=== PATIENT | female | born 2000 | race Caucasian/White ===

== ENCOUNTER 2024-04-28 14:48 | Emergency (ER) | payer OTHER, SELFPAY ==
--- OUTSIDE RECORDS SUMMARY | 2024-04-28 14:53 | XMS REPORT | Continuity of Care Document ---
Author Name Unknown Address [address] [facility] [place] [address] [facility] thconnect Address [address] [facility] [place] [address] Care Team Providers Care Java Developer With Security Clearance Name Role Phone JULIANNA MOHAN Primary Care Physician Unav ailable Miryam Palomino CNM Attending Clinician [phone] MIRYAM PALOMINO Attending Clinician Unavaila ble Julianna Reno Attending Clinician + Thanh Celis Attending Clinician Unavailable L_Panfilo Attending Clinician Unavailable Yahaira Wang Attending Clinician [phone] YAHAIRA STILES Attending Clinician Unavailabl e Doctor Unassigned, [facility] Attending Clinician U navailable SMITHROROSHAN_Lowell Attending Clinician Unavailable Victoria Cooley Attending Clinician [phone] JULIANNA MOHAN Attending Clinician Unavail able PHU Attending Clinician Unavailable Sue Garland MA [facility] Admitting Clinician U navailliban KNOW, DOES_NOT Admitting Clinician Unavailable L_Pena Admitting Clinician Unavailable SCHAUBROECK_Lowell Admitting Clinician Unavailable PHU Admitting Clinician Unavailable Payers Payer Name Policy Type Policy Number Effective Date Expirati on Date Source [id number] 00:[facility]:00 Problems Condition Name Condition Details Condition Category Status Onset Date Resolution Date Last Treatment Date Treating Clinician Comments Source Vomiting Vomiting Problem Active 1-16 00:00: 00 [facility] Atypical squamous cells of undetermin ed significan ce (ASCUS) on Papanicola ou smear of cervix Atypical squamous cells of undetermin ed significan ce (ASCUS) on Papanicola ou smear of cervix Disease Active 5- 00:00: 00 Overview: Formattin g of this note might be different from the original. 4 ASCUS, repeat 1 year [facility] Engages in vaping Engages in vaping Disease Active 5-03 00:00: 00 [facility] Fracture of lumbar spine Fracture of Lumbar Spine Problem Active 1-21 00:00: 00 [facility] Mixed anxiety and depressive disorder Mixed Anxiety and Depressive Disorder Problem Active 09-10 00:00: 00 [facility] Acute pharyngiti s Acute Pharyngiti s Problem Active 6- 00:00: 00 [facility] Nausea Nausea Problem Active 09-10 00:00: 00 [facility] Nexplanon insertion Nexplanon insertion Disease Active -15 00:00: 00 [facility] Nexplanon in place Nexplanon in place Disease Active 15 00:00: 00 [facility] Leukocytos is Leukocytos is Problem Active 10-03 00:00: 00 [facility] Abdominal pain Abdominal Pain Problem Active 6 00:00: 00 [facility] Cyst of left ovary Cyst of Left Ovary Problem Active 10-03 00:00: 00 [facility] Seasonal allergy Seasonal Allergy Problem Active 3-17 00:00: 00 [facility] Pain pelvic Pain pelvic Disease Active 5 00:00: 00 [facility] Contracept gabino management Contracept gabino management Disease Active 06-23 00:00: 00 [facility] Nexplanon removal Nexplanon removal Disease Active 06-23 00:00: 00 Overview: Formattin g of this note might be different from the original. Inserted 06/2017 [facility] Allergies, Adverse Reactions, Alerts Allergy Name Allergy Type Status Severity Reaction(s) Onset Date Inactive Date Treating Clinician Comments Source No Known Allergie s DA Active U 9- 00:00: 00 [facility] No Known Allergie s DA Active U 07-09 00:00: 00 [facility] NO KNOWN ALLERGIE S Drug Class Active [facility] Social History Social Habit Start Date Stop Date Quantity Comments Source Sexual orientation U [facility] History of tobacco use Cigarette Smoker [facility] Exposure to SARS-CoV-2 (event) Not sure [facility] Alcoholic beverage intake 2023-08-24 00:00:00 2023-08-24 00:00:00 1.71 /d [facility] Alcohol intake 2023-08-12 00:00:00 2023-08-12 00:00:00 1.71 /d [facility] History of Social function 2023-08-11 00:00:00 2023-08-11 00:00:00 [facility] Tobacco use and exposure 2023-08-11 00:00:00 2023-08-11 00:00:00 User of smokeless tobacco [facility] Sex assigned at 2000 00:00:00 2000 00:00:00 [facility] Smoking Status Start Date Stop Date Source Smokes tobacco daily 2023-08-11 00:00:00 [facility] Never smoked tobacco [facility] Medications Ordered Medication Name Filled Medication Name Start Date Stop Date Current Medication? Ordering Clinician Indication Dosage Frequency Signature (SIG) Comments Components Source fluoxetine HCl (PROZAC ORAL) 9-21 13:39: 07 Yes Take by mouth. [facility] fluoxetine HCl (PROZAC ORAL) 4-06 13:58: 06 08-11 00:00 :00 No Take by mouth. [facility] dicloxacill in 500 mg capsule 06-26 00:00: 00 07-04 04:59 :00 No [id number] 500mg Take 1 capsule by mouth 4 (four) times daily for 7 days. [facility] etonogestre L (NEXPLANON) implant 68 mg 06-23 20:00: 00 06-23 18:53 :00 No [id number] 68mg [facility] No [facility] No known medications No Un benito [facility] No known medications No Un benito [facility] No known medications No Un benito [facility] No known medications No Un benito [facility] No known medications No Un beniot [facility] fluoxetine 20 mg capsule Take 1 capsule every day by oral route. fluoxetine 20 mg capsule Take 1 capsule every day by oral route. No 1capsul e(s) Q1D fluoxetine 20 mg capsule Take 1 capsule every day by oral route. [facility] ibuprofen 800 mg tablet TAKE 1 TABLET BY MOUTH THREE TIMES DAILY NEEDED FOR PAIN ibuprofen 800 mg tablet TAKE 1 TABLET BY MOUTH THREE TIMES DAILY NEEDED FOR PAIN No ibuprofen 800 mg tablet TAKE 1 TABLET BY MOUTH THREE TIMES DAILY NEEDED FOR PAIN [facility] ondansetron 4 mg disintegrat ing tablet MAY TAKE 1-2 TABLETS EVERY 12 HOURS NEEDED FOR NAUSEA/VOMI TING ondansetron 4 mg disintegrat ing tablet MAY TAKE 1-2 TABLETS EVERY 12 HOURS NEEDED FOR NAUSEA/VOMI TING No ondansetro n 4 mg disintegra ting tablet MAY TAKE 1-2 TABLETS EVERY 12 HOURS NEEDED FOR NAUSEA/VOM ITING [facility] Immunizations Ordered Immunization Name Filled Immunization Name Date Status Comments Source SARS-COV-2 COVID-19 PFIZER VACCINE 2020-11-24 00:00:00 Completed [facility] SARS-COV-2 COVID-19 PFIZER VACCINE 2020-11-03 00:00:00 Completed [facility] Influenza Virus Vaccine Quad .5 mL IM 6+ MO 2019-12-27 00:00:00 Completed [facility] Influenza Virus Vaccine Quad .5 mL IM 6+ MO 2019-12-27 00:00:00 Completed [facility] Influenza Virus Vaccine Quad .5 mL IM 6+ MO 2019-12-27 00:00:00 Completed [facility] Influenza Virus Vaccine Quad .5 mL IM 6+ MO 2019-12-27 00:00:00 Completed [facility] Influenza Virus Vaccine Quad .5 mL IM 6+ MO 2019-12-27 00:00:00 Completed [facility] Influenza Virus Vaccine Quad .5 mL IM 6+ MO 2019-12-27 00:00:00 Completed [facility] Influenza Virus Vaccine Quad .5 mL IM 6+ MO 2019-12-27 00:00:00 Completed [facility] Influenza Virus Vaccine Quad .5 mL IM 6+ MO 2019-12-27 00:00:00 Completed [facility] Influenza Virus Vaccine Quad .5 mL IM 6+ MO 2019-12-27 00:00:00 Completed [facility] meningococcal MCV4P meningococcal MCV4P 16:16:00 Completed [facility] HPV9 2017-12-29 00:00:00 Completed [facility] HPV9 2017-12-29 00:00:00 Completed [facility] HPV9 2017-12-29 00:00:00 Completed [facility] HPV9 2017-12-29 00:00:00 Completed [facility] HPV9 2017-12-29 00:00:00 Completed [facility] HPV9 2017-12-29 00:00:00 Completed [facility] HPV9 2017-12-29 00:00:00 Completed [facility] HPV9 2017-12-29 00:00:00 Completed [facility] HPV9 2017-12-29 00:00:00 Completed [facility] HPV9 2017-12-29 00:00:00 Completed [facility] HPV9 2017-08-26 00:00:00 Completed [facility] HPV9 2017-08-26 00:00:00 Completed [facility] HPV9 2017-08-26 00:00:00 Completed [facility] HPV9 2017-08-26 00:00:00 Completed [facility] HPV9 2017-08-26 00:00:[address] [facility] HPV9 2017-08-26 00:00:[address] [facility] HPV9 2017-08-26 00:00:00 Completed [facility] HPV9 2017-08-26 00:00:00 Completed [facility] HPV9 2017-08-26 00:00:00 Completed [facility] HPV9 2017-08-26 00:00:00 Completed [facility] HPV9 2017-06-23 00:00:00 Completed [facility] HPV9 2017-06-23 00:00:00 Completed [facility] HPV9 2017-06-23 00:00:00 Completed [facility] HPV9 2017-06-23 00:00:00 Completed [facility] HPV9 2017-06-23 00:00:00 Completed [facility] HPV9 2017-06-23 00:00:[address] [facility] HPV9 2017-06-23 00:00:00 Completed [facility] HPV9 2017-06-23 00:00:00 Completed [facility] HPV9 2017-06-23 00:00:00 Completed [facility] HPV9 2017-06-23 00:00:00 Completed [facility] TDAP 2013-04-11 00:00:00 Completed [facility] TDAP 2013-04-11 00:00:00 Completed [facility] TDAP 2013-04-11 00:00:00 Completed [facility] TDAP 2013-04-11 00:00:00 Completed [facility] TDAP 2013-04-11 00:00:00 Completed [facility] TDAP 2013-04-11 00:00:00 Completed [facility] TDAP 2013-04-11 00:00:00 Completed [facility] TDAP 2013-04-11 00:00:00 Completed [facility] TDAP 2013-04-11 00:00:00 Completed [facility] TDAP 2013-04-11 00:00:00 Completed [facility] TDAP Unknown Completed [facility] HPV9 Unknown Completed [facility] Influenza Virus Vaccine Quad .5 mL IM 6+ MO (FLUZONE/FLULAVAL/F LUARIX) Unknown Completed [facility] SARS-COV-2 COVID-19 PFIZER VACCINE Unknown Completed [facility] TDAP Unknown Completed [facility] HPV9 Unknown Completed [facility] Influenza Virus Vaccine Quad .5 mL IM 6+ MO (FLUZONE/FLULAVAL/F LUARIX) Unknown Completed [facility] SARS-COV-2 COVID-19 PFIZER VACCINE Unknown Completed [facility] TDAP Unknown Completed [facility] HPV9 Unknown Completed [facility] Influenza Virus Vaccine Quad .5 mL IM 6+ MO (FLUZONE/FLULAVAL/F LUARIX) Unknown Completed [facility] SARS-COV-2 COVID-19 PFIZER VACCINE Unknown Completed [facility] Vital Signs Vital Name Observation Time Observation Value Comments S ource BP Systolic 2024-04-26 00:00:00 115 mm[Hg] [facility] BP Diastolic 2024-04-26 00:00:00 65 mm[Hg] [facility] Body Weight 2024-04-26 00:00:00 2048 [oz_av] [facility] Systolic blood pressure 2023-08-11 17:59:00 96 mm[Hg] [facility] Diastolic blood pressure 2023-08-11 17:59:00 65 mm[Hg] [facility] Heart rate 2023-08-11 17:59:00 78 /min [facility] Body temperature 2023-08-11 17:59:00 36.39 Gail [facility] Respiratory rate 2023-08-11 17:59:00 16 /min [facility] Body height 2023-08-11 17:59:[address] [facility] Body weight 2023-08-11 17:59:[address] [facility] BMI 2023-08-11 17:59:00 24.19 kg/m2 [facility] BP Diastolic 2022-06-02 00:00:00 75 mm[Hg] [facility] Height 2022-06-02 00:00:00 61 [in_i] [facility] BMI (Body Mass Index) 2022-06-02 00:00:00 26.3 kg/m2 [facility] BP Systolic 2022-06-02 00:00:00 117 mm[Hg] [facility] Body Weight 2022-06-02 00:00:00 2227.2 [oz_av] [facility] Height 2022-02-23 00:00:00 61 [in_i] [facility] BP Systolic 2022-02-23 00:00:00 121 mm[Hg] [facility] Body Weight 2022-02-23 00:00:00 2214.4 [oz_av] [facility] BP Diastolic 2022-02-23 00:00:00 76 mm[Hg] [facility] Systolic blood pressure 2020-12-30 18:37:00 97 mm[Hg] [facility] Diastolic blood pressure 2020-12-30 18:37:00 64 mm[Hg] [facility] Heart rate 2020-12-30 18:37:00 68 /min [facility] Body temperature 2020-12-30 18:37:00 36.94 Gail [facility] Respiratory rate 2020-12-30 18:37:00 18 /min [facility] Body height 2020-12-30 18:37:[address] [facility] Body weight 2020-12-30 18:37:[address] [facility] BMI 2020-12-30 18:37:00 22.07 kg/m2 [facility] Body mass index (BMI) [Percentile] Per age and sex 2020-12-30 18:37:00 56.22 % [facility] BP Diastolic 2020-10-07 00:00:00 60 mm[Hg] [facility] Height 2020-10-07 00:00:00 61 [in_i] [facility] BP Systolic 2020-10-07 00:00:00 100 mm[Hg] [facility] BP Diastolic 2020-09-10 00:00:00 58 mm[Hg] [facility] Height 2020-09-10 00:00:00 61 [in_i] [facility] BMI (Body Mass Index) 2020-09-10 00:00:00 21.5 kg/m2 [facility] BP Systolic 2020-09-10 00:00:00 108 mm[Hg] [facility] Body Weight 2020-09-10 00:00:00 1817.6 [oz_av] [facility] Systolic blood pressure 2020-07-15 18:06:00 94 mm[Hg] [facility] Diastolic blood pressure 2020-07-15 18:06:00 62 mm[Hg] [facility] Heart rate 2020-07-15 18:06:00 62 /min [facility] Body temperature 2020-07-15 18:06:00 37.06 Gail [facility] Respiratory rate 2020-07-15 18:06:00 16 /min [facility] Body height 2020-07-15 18:06:[address] [facility] Body weight 2020-07-15 18:06:[address] [facility] BMI 2020-07-15 18:06:00 20.05 kg/m2 [facility] Systolic blood pressure 2020-06-30 20:03:00 112 mm[Hg] [facility] Diastolic blood pressure 2020-06-30 20:03:00 69 mm[Hg] [facility] Heart rate 2020-06-30 20:03:00 90 /min [facility] Body temperature 2020-06-30 20:03:00 36.83 Gail [facility] Respiratory rate 2020-06-30 20:03:00 16 /min [facility] Body height 2020-06-30 20:03:00 154.9 cm [facility] Body weight 2020-06-30 20:03:00 47.809 kg [facility] BMI 2020-06-30 20:03:00 19.92 kg/m2 [facility] Systolic blood pressure 2020-06-26 21:14:00 106 mm[Hg] [facility] Diastolic blood pressure 2020-06-26 21:14:00 71 mm[Hg] [facility] Heart rate 2020-06-26 21:14:00 64 /min [facility] Body temperature 2020-06-26 21:14:00 36.89 Gail [facility] Respiratory rate 2020-06-26 21:14:00 16 /min [facility] Body height 2020-06-26 21:14:00 154.9 cm [facility] Body weight 2020-06-26 21:14:[address] [facility] BMI 2020-06-26 21:14:00 19.38 kg/m2 [facility] Systolic blood pressure 2020-06-23 18:16:00 113 mm[Hg] [facility] Diastolic blood pressure 2020-06-23 18:16:00 71 mm[Hg] [facility] Heart rate 2020-06-23 18:16:00 74 /min [facility] Body temperature 2020-06-23 18:16:00 36.89 Gail [facility] Respiratory rate 2020-06-23 18:16:00 16 /min [facility] Body height 2020-06-23 18:16:00 154.9 cm [facility] Body weight 2020-06-23 18:16:[address] [facility] BMI 2020-06-23 18:16:00 19.32 kg/m2 [facility] Height 2020-05-05 00:00:00 61 [in_i] [facility] BMI (Body Mass Index) 2020-05-05 00:00:00 19.7 kg/m2 [facility] BP Systolic 2020-05-05 00:00:00 105 mm[Hg] [facility] Body Weight 2020-05-05 00:00:00 1664 [oz_av] [facility] BP Diastolic 2020-05-05 00:00:00 67 mm[Hg] [facility] Systolic blood pressure 2019-12-27 18:21:00 117 mm[Hg] [facility] Diastolic blood pressure 2019-12-27 18:21:00 75 mm[Hg] [place] [facility] Heart rate 2019-12-27 18:21:00 92 /min [facility] Body temperature 2019-12-27 18:21:00 36.89 Gail [facility] Respiratory rate 2019-12-27 18:21:00 16 /min [facility] Body height 2019-12-27 18:21:[address] [facility] Body weight 2019-12-27 18:21:[address] [facility] BMI 2019-12-27 18:21:00 20.24 kg/m2 [facility] Procedures Procedure Date / Time Performed Performing Clinician Source POCT TEST 2023-08-11 19:36:00 Marylou Palomino [facility] PAP SMEAR-LIQUID BASED-CP 2023-08-11 19:35:00 Miryam Palomino [facility] CBC WITH DIFF 2023-08-11 18:50:00 Miryam Palomino [facility] HIV 1/2 AG-AB WITH REFLEX 2023-08-11 18:50:00 Miryam Palomino [facility] ASSIGNMENT OF BENEFITS 2020-12-30 18:19:07 Docto r Unassigned, [place] [facility] XR, chest, 2 view 2020-10-07 00:00:00 [facility] POCT TEST 2020-06-23 18:19:00 Edgar Mohan [facility] DISCLOSURE AND CONSENT, MEDICAL AND SURGICAL PROCEDURES 2020-06-23 05:01:00 Doctor Unassigned, [place] [facility] FLU VACC ([id number]), 6+ MONTHS, IM, QUAD 2019-12-27 18:29:17 Yahaira Stiles [facility] ASSIGNMENT OF BENEFITS 2019-12-27 17:57:44 Docto r Unassigned, [place] [facility] Debridement 2004-04-11 00:00:00 [facility] Encounters Start Date/Time End Date/Time Encounter Type Admission Type Attending Clinicians Care Facility Care Department Encounter ID Source 2024-04-26 00:00:00 2024-04-26 00:00:00 Nannette Whittaker APRN, MSN, [facility]-: [address], [address], [place] [address] , Ph. [facility] [id number] 116 [facility] 2023-08-24 00:00:00 2023-08-24 12:52:39 Telephone Miryam Palomino [facility] .[id number] [facility] 2023-08-17 08:30:00 2023-08-17 08:30:00 Outpatient MIRYAM [facility] [id number] [facility] 2023-08-11 12:30:00 2023-08-11 13:54:09 Outpatient MIRYAM LOPEZ [facility] [id number] [facility] 2023-08-11 12:30:00 2023-08-11 13:54:09 Office Visit Miryam Palomino [facility] LOG [facility] ..840.114 [id number] [facility] 2023-07-29 09:00:00 2023-07-29 09:00:00 Outpatient MIRYAM LOPEZ [facility] [id number] [facility] 2023-07-29 09:00:00 2023-07-29 09:00:00 Outpatient MIRYAM LOPEZ [facility] [id number] [facility] 2023-06-30 00:00:00 2023-06-30 00:00:00 Telephone Julianna Mohan [facility] [id number] [facility] 2022-12-28 06:04:00 2022-12-28 06:04:00 Outpatient Thanh Joe HCANW DAYS [id number] 76 [facility] are [facility] 2022-07-13 05:03:00 2022-07-13 05:03:00 Outpatient Thanh JoeNW DAYS [id number] 12 [facility] are [facility] 2022-06-02 00:00:00 2022-06-02 00:00:00 Outpatient L_Pena [facility] 2022-06-02 00:00:00 2022-06-02 00:00:00 Elsa Palacios APRN-PERFORMANCE TEST ARCHITECT-B C: [address] [place] [address], [address] [address] , Ph. [facility] [id number] [facility] 2022-02-23 00:00:00 2022-02-23 00:00:00 Outpatient L_Pena [facility] 2022-02-23 00:00:00 2022-02-23 00:00:00 Nannette Whittaker APRN, MSN, PERFORMANCE TEST ARCHITECT-BC: [address] [place] [address], [address] [address] , Ph. [facility] [id number] [facility] 2020-12-30 13:22:44 2020-12-30 13:59:34 Office Visit Yahaira Stiles [facility] LOG [facility] 1..840.114 [id number] [facility] 2020-12-30 13:15:00 2020-12-30 13:15:00 Outpatient YAHAIRA [facility] [id number] [facility] 2020-12-30 00:00:00 2020-12-30 00:00:00 Orders Only Doctor Unassigned, [place] [facility] 1..840.114 [id number] [facility] 2020-12-30 00:00:00 2020-12-30 00:00:00 Orders Only Doctor Unassigned, [place] [facility] 1..840.114 [id number] [facility] 2020-11-10 02:06:00 2020-11-10 02:06:00 Outpatient SMITHROROSHAN _L [facility] [id number] [facility] 2020-10-07 11:07:00 2020-10-07 11:07:00 Outpatient SMITHROROSHAN _L [facility] [id number] [facility] 2020-10-07 00:00:00 2020-10-07 00:00:00 Outpatient Victoria Cooley [facility] [id number] 2020-10-07 00:00:00 2020-10-07 00:00:00 EMILIANO Brice-C: [address] [place] [address], [address], [place] [address] , Ph. [facility] [id number] [facility] [facility] 2020-[facility]-10 02:50:00 2020-09-10 02:50:00 Outpatient [place]K _L [facility] [id number] [facility] 2020-09-10 00:00:00 2020-09-10 00:00:00 Outpatient Victoria Cooley [facility] [id number] 2020-09-10 00:00:00 2020-09-10 00:00:00 Victoria parker, [facility]-: [address] [place] [address], [address] [place] [id number] , Ph. [facility] - [facility] [id number] [facility] 2020-08-05 10:42:00 2020-08-05 10:42:00 Outpatient [place] _L [facility] [id number] [facility] 2020-07-15 12:57:43 2020-07-15 13:27:48 Office Visit Julianna Mohan [facility] 1.2.840.114 350.1.13.10 4.2.7.2.686 [id number] 107 [id number] [facility] 2020-07-15 12:45:00 2020-07-15 12:45:00 Outpatient R JULIANNA MOHAN [facility] [id number] [facility] 2020-07-07 10:00:00 2020-07-07 10:00:00 Outpatient R JULIANNA MOHAN [facility] [id number] [facility] 2020-06-30 14:56:57 2020-06-30 15:11:57 Office Visit Julianna Mohan [facility] LOG [facility] 840.114 350.1.13.10 4.2.7.2.686 [id number] [facility] 2020-06-30 14:45:00 2020-06-30 14:45:00 Outpatient R JULIANNA MOHAN [facility] [id number] [facility] 2020-06-26 16:06:23 2020-06-26 16:28:07 Office Visit Julianna Mohan [facility] 1.0.114 350.1.13.10 4.2.7.2.686 [id number] [facility] 2020-06-26 16:00:00 2020-06-26 16:00:00 Outpatient R JULIANNA MOHAN [facility] [id number] [facility] 2020-06-26 00:00:00 2020-06-26 00:00:00 Telephone Julianna Mohan [facility] 1..114 350.1.13.10 4.2.7.2.686 [id number] [facility] 2020-06-23 12:57:04 2020-06-23 14:04:04 Office Visit AmbrocioelzaJulianna amaya [facility] LOG [facility] 1.840.114 350.1.13.10 4.2.7.2.686 [id number] [facility] 2020-06-23 13:00:00 2020-06-23 13:00:00 Outpatient R JULIANNA MOHAN [facility] [id number] [facility] 2020-06-23 00:00:00 2020-06-23 00:00:00 Orders Only Doctor Unassigned, [place] [facility] 1.0.114 350.1.13.10 4.2.7.2.686 [id number] [facility] 2020-05-06 09:37:00 2020-05-06 09:37:00 Outpatient TURNER_FA [facility] 2020-05-05 05:54:00 2020-05-05 05:54:00 Outpatient TURNER_FA [facility] 125 [facility] 2020-05-05 00:00:00 2020-05-05 00:00:00 Outpatient Victoria Cooley Marie [facility] [id number] 2020-05-05 00:00:00 2020-05-05 00:00:00 Victoria parker, [facility]-: [address] [place] [address], [address], [place] [address] , Ph. [facility] [id number] [facility] 2019-12-27 13:05:25 2019-12-27 13:34:28 Office Visit Yahaira Stiles [facility] LOG [facility] 1..840.114 350.1.13.10 4.2.7.2.686 [id number] [facility] 2019-12-27 12:45:00 2019-12-27 12:45:00 Outpatient R YAHAIRA STILES [facility] [id number] [facility] 2019-12-27 00:00:00 2019-12-27 00:00:00 Orders Only Doctor Unassigned, [place] [facility] 1..840.114 350.1.13.10 4.2.7.2.686 [id number] [facility] Results Test Description Test Time Test Comments Results Result Co mments Source [facility] WITH [id number] 10:28:48* Test Item Value Reference Range Interpretation Comme nts HIV Semi-quantitative (test code = 30732-2) 0.08 Negative JT (test code = JT) Non-reactive for HIV-1 antigen and HIV-1/HIV-2 antibodies. ?No laboratory evidence of HIV infection. ?Repeat in 2-4 weeks if acute HIV infection is suspected. [facility] 1/2 AG-AB WITH [id number] 10:28:48* Test Item Value Reference Range Interpretation Comme nts HIV Semi-quantitative (test code = 48990-9) 0.08 Negative JT (test code = JT) Non-reactive for HIV-1 antigen and HIV-1/HIV-2 antibodies. ?No laboratory evidence of HIV infection. ?Repeat in 2-4 weeks if acute HIV infection is suspected. [facility] 1/2 AG-AB WITH [id number] 10:28:48* Test Item Value Reference Range Interpretation Comme [facility] HIV Semi-quantitative (test code = 82639-3) 0.08 Negative JT (test code = JT) Non-reactive for HIV-1 antigen and HIV-1/HIV-2 antibodies. ?No laboratory evidence of HIV infection. ?Repeat in 2-4 weeks if acute HIV infection is suspected. [facility] WITH [id number] 04:38:58* Test Item Value Reference Range Interpretation Comme [facility] WBC (test code = 6690-2) 7.88 4.30-11.10 RBC (test code = 789-8) 4.99 3.93-5.25 HGB (test code = 718-7) 15.8 g/dL 11.6-15.0 H HCT (test code = 4544-3) 48.7 % 35.7-45.2 H MCV (test code = 787-2) 97.6 fL 80.6-95.5 H MCH (test code = 785-6) 31.7 pg 25.9-32.8 MCHC (test code = 786-4) 32.4 g/dL 31.6-35.1 RDW-SD (test code = 50261-0) 45.6 fL 39.0-49.9 RDW-CV (test code = 788-0) 12.9 % 12.0-15.5 PLT (test code = 777-3) 249 166-358 MPV (test code = 48972-7) 10.4 fL 9.5-12.9 NRBC/100 WBC (test code = 1312330989) 0.0 0.0-10.0 NRBC x10^3 (test code = 8775690698) See_Comment [Automated messa ge] The system which generated this result transmitted reference range: 10*3/?L. The reference range was not used to interpret this result as normal/abnormal. GRAN MAT (NEUT) % (test code = 770-8) 58.7 % IMM GRAN % (test code = 6027106092) 1.90 % LYMPH % (test code = 736-9) 27.5 % MONO % (test code = 5905-5) 9.9 % EOS % (test code = 713-8) 1.1 % BASO % (test code = 706-2) 0.9 % GRAN MAT x10^3(ANC) (test code = 7494028785) 4.62 10*3/uL 1.88-7.09 IMM GRAN x10^3 (test code = 9688214725) 0.15 10*3/uL 0.00-0.06 H LYMPH x10^3 (test code = 731-0) 2.17 10*3/uL 1.32-3.29 MONO x10^3 (test code = 742-7) 0.78 10*3/uL 0.33-0.92 EOS x10^3 (test code = 711-2) 0.09 10*3/uL 0.03-0.39 BASO x10^3 (test code = 704-7) 0.07 10*3/uL 0.01-0.07 Lab Interpretation (test code = 33583-7) Abnormal [facility] WITH [id number] 04:38:58* Test Item Value Reference Range Interpretation Comme nts WBC (test code = 6690-2) 7.88 4.30-11.10 RBC (test code = 789-8) 4.99 3.93-5.25 HGB (test code = 718-7) 15.8 g/dL 11.6-15.0 H HCT (test code = 4544-3) 48.7 % 35.7-45.2 H MCV (test code = 787-2) 97.6 fL 80.6-95.5 H MCH (test code = 785-6) 31.7 pg 25.9-32.8 MCHC (test code = 786-4) 32.4 g/dL 31.6-35.1 RDW-SD (test code = 86232-2) 45.6 fL 39.0-49.9 RDW-CV (test code = 788-0) 12.9 % 12.0-15.5 PLT (test code = 777-3) 249 166-358 MPV (test code = 49141-9) 10.4 fL 9.5-12.9 NRBC/100 WBC (test code = 8898781972) 0.0 0.0-10.0 NRBC x10^3 (test code = 5996509278) See_Comment [Automated messa ge] The system which generated this result transmitted reference range: 10*3/?L. The reference range was not used to interpret this result as normal/abnormal. GRAN MAT (NEUT) % (test code = 770-8) 58.7 % IMM GRAN % (test code = 1796995855) 1.90 % LYMPH % (test code = 736-9) 27.5 % MONO % (test code = 5905-5) 9.9 % EOS % (test code = 713-8) 1.1 % BASO % (test code = 706-2) 0.9 % GRAN MAT x10^3(ANC) (test code = 2967038349) 4.62 10*3/uL 1.88-7.09 IMM GRAN x10^3 (test code = 9112544859) 0.15 10*3/uL 0.00-0.06 H LYMPH x10^3 (test code = 731-0) 2.17 10*3/uL 1.32-3.29 MONO x10^3 (test code = 742-7) 0.78 10*3/uL 0.33-0.92 EOS x10^3 (test code = 711-2) 0.09 10*3/uL 0.03-0.39 BASO x10^3 (test code = 704-7) 0.07 10*3/uL 0.01-0.07 Lab Interpretation (test code = 49068-5) Abnormal [facility] WITH [id number] 04:38:58* Test Item Value Reference Range Interpretation Comme nts WBC (test code = 6690-2) 7.88 4.30-11.10 RBC (test code = 789-8) 4.99 3.93-5.25 HGB (test code = 718-7) 15.8 g/dL 11.6-15.0 H HCT (test code = 4544-3) 48.7 % 35.7-45.2 H MCV (test code = 787-2) 97.6 fL 80.6-95.5 H MCH (test code = 785-6) 31.7 pg 25.9-32.8 MCHC (test code = 786-4) 32.4 g/dL 31.6-35.1 RDW-SD (test code = 96144-3) 45.6 fL 39.0-49.9 RDW-CV (test code = 788-0) 12.9 % 12.0-15.5 PLT (test code = 777-3) 249 166-358 MPV (test code = 83423-9) 10.4 fL 9.5-12.9 NRBC/100 WBC (test code = 1910038733) 0.0 0.0-10.0 NRBC x10^3 (test code = 9709397072) See_Comment [Automated messa ge] The system which generated this result transmitted reference range: 10*3/?L. The reference range was not used to interpret this result as normal/abnormal. GRAN MAT (NEUT) % (test code = 770-8) 58.7 % IMM GRAN % (test code = 0840520909) 1.90 % LYMPH % (test code = 736-9) 27.5 % MONO % (test code = 5905-5) 9.9 % EOS % (test code = 713-8) 1.1 % BASO % (test code = 706-2) 0.9 % GRAN MAT x10^3(ANC) (test code = 9693299467) 4.62 10*3/uL 1.88-7.09 IMM GRAN x10^3 (test code = 3947648808) 0.15 10*3/uL 0.00-0.06 H LYMPH x10^3 (test code = 731-0) 2.17 10*3/uL 1.32-3.29 MONO x10^3 (test code = 742-7) 0.78 10*3/uL 0.33-0.92 EOS x10^3 (test code = 711-2) 0.09 10*3/uL 0.03-0.39 BASO x10^3 (test code = 704-7) 0.07 10*3/uL 0.01-0.07 Lab Interpretation (test code = 09180-7) Abnormal [facility] [id number] 19:36:00* Test Item Value Reference Range Interpretation Comme nts POCT PREG (test code = 1605) Negative On board controls acceptable with C Line (test code = 3574) Yes POCT PREG LOT # (test code = 3575) POCT PREG TEST DATE ( test code = 3576) [facility] [id number] 19:36:00* Test Item Value Reference Range Interpretation Comme nts POCT PREG (test code = 1605) Negative On board controls acceptable with C Line (test code = 3574) Yes POCT PREG LOT # (test code = 3575) POCT PREG TEST DATE ( test code = 3576) [facility] [id number] 19:36:00* Test Item Value Reference Range Interpretation Comme nts POCT PREG (test code = 1605) Negative On board controls acceptable with C Line (test code = 3574) Yes POCT PREG LOT # (test code = 3575) POCT PREG TEST DATE ( test code = 3576) [facility] [id number] 07:47:00* Test Item Value Reference Range Interpretation Comme [facility] SURGICAL SPECIMENS (test code = SURG) RUN DATE: 12/29/22 [facility] - LAB PAGE 1 RUN TIME: 746 Specimen Inquiry RUN USER: INTERFACE PATIENT: MELISSA CHAVIRA LOC: [facility] U #: [id number] AGE/SX: 22/F ROOM: [facility]12[facility]28[facility]: Thanh Celis DPM : 01 BED: DIS: STATUS: [facility] TLOC: SPEC #: [id number] RECD: 12/28/229 STATUS: ALEX ESPINOZA #: [id number] HERRERA: 12/28/22-[address]: Thanh Celis DPM ENTERED: 12/28/22-1113 SP TYPE: SURG OTHR DR: DOES_NOT KNOW Sue Garland MA [facility] SLPORDERED: GROSS, PATH SPEC TISSUES: A. PRESSER FIRST - Left food hardware CLINICAL HISTORY Diagnosis/Clinical Data: Left foot hardware removal Operative Procedure: Left foot hardware removal FINAL DIAGNOSIS Left foot hardware, removal: Identified Electronically signed by: Ez Meadows MD GROSS DESCRIPTION Received fresh labeled "left foot hardware" are multiple screws ranging from 1.0 cm in length to 1.5 cm in length by 0.2 cm in diameter. There is a silver metallic plate measuring 3.3 x 0.5 x 0.2 cm. There is a serial number on one of the screws: [id number] 2.5. No tissue is submitted with this gross specimen. JAVIER 12/28/2022 05:30 PM Signed SIGNATURE ON FILE Ez Meadows Vinh 12/29/22 0747 END OF REPORT HCG SERUM [id number] 10:01:00* Test Item Value Reference Range Interpretation Comme nts HCG SERUM QUAL (test code = HCGQL) NEGATIVE NEGATIVE This is a qu alitative screening test.The quantitative Bhcg may be helpful.Weakly positive results should be repeated in 48 hours. COMPREHENSIVE METABOLIC [id number] 10:01:00* Test Item Value Reference Range Interpretation Comme nts SODIUM (test code = NA) 136 mmol/L 135-145 N POTASSIUM (test code = K) 4.0 mmol/L 3.6-5.0 N CHLORIDE (test code = CL) 103 mmol/L 101-111 N CARBON DIOXIDE (test code = CO2) 23 mmol/L 21-31 N GLUCOSE (test code = GLU) 91 mg/dl 70-100 N BLOOD UREA NITROGEN (test code = BUN) 8 mg/dl 6-20 N GLOMERULAR FILTRATION RATE (test code = GFR) >=60 max estimate >60 The Glomerular Filtration Rate is a calculated parameterbased on serum Creatinine, patient age and sex. GFR valuesless than 60 mL/min/1.73 square meters are indicative ofChronic Kidney Disease. Values less than 15 mL/min/1.73square meters indicate Kidney failure. The calculation forGFR is based on the CKD-EPI (202) calculation. This formulais race indifferent and is the recommended formula for GFRby the National Kidney Foundation for Adults.The GFR will not calculate if the sex is unknown or if thepatient's age is <18 years. CREATININE (test code = CREAT) 0.71 mg/dL 0.44-1.03 N TOTAL PROTEIN (test code = PROT) 7.0 g/dL 6.7-8.2 N ALBUMIN (test code = ALB) 4.6 g/dL 3.2-5.5 N CALCIUM (test code = CA) 9.4 mg/dL 8.5-10.5 N BILIRUBIN TOTAL (test code = BILT) 1.30 mg/dL 0.2-1.3 N SGOT/AST (test code = AST) 23 U/L 10-42 N SGPT/ALT (test code = ALT) 27 U/L 10-60 N ALKALINE PHOSPHATASE (test code = ALKP) 71 U/L 42-121 N INDEX HEMOLYSIS (test code = HEMINDEX) 0 Index/DL See_Comment [Automated messa ge] The system which generated this result transmitted reference range: 1 NORMAL. The reference range was not used to interpret this result as normal/abnormal. INDEX ICTERIC (test code = ICTINDEX) 2 Index/DL See_Comment [Automated messa ge] The system which generated this result transmitted reference range: 1 NORMAL. The reference range was not used to interpret this result as normal/abnormal. INDEX LIPEMIA (test code = LIPINDEX) 0 Index/DL See_Comment [Automated messa ge] The system which generated this result transmitted reference range: 1 NORMAL. The reference range was not used to interpret this result as normal/abnormal. CBC W/AUTO [id number] 09:46:00* Test Item Value Reference Range Interpretation Comme nts WHITE BLOOD CELL (test code = WBC) 9.8 x10 3/uL 3.2-11.5 N RED BLOOD CELL (test code = RBC) 5.58 x10(6)/m 3.70-5.10 H HEMOGLOBIN (test code = HGB) 16.7 g/dL 12.0-15.0 H HEMATOCRIT (test code = HCT) 50.3 % 35.7-44.8 H MEAN CELL VOLUME (test code = MCV) 90 fL 80-100 N MEAN CELL HGB (test code = MCH) 29.9 pg 26.2-33.8 N MEAN CELL HGB CONCENTRATION (test code = MCHC) 33.2 g/dL 30.0-34.0 N RED CELL DISTRIBUTION WIDTH (test code = RDW) 15.1 % 11.3-14.5 H PLATELET COUNT (test code = PLT) 214 x10 3/uL 130-408 N MEAN PLATELET VOLUME (test c ode = MPV) 9.8 fL 8.6-12.6 N NEUTROPHIL % (test code = NT%) 64.7 % 40.0-70.0 N LYMPHOCYTE % (test code = LY%) 23.1 % 20-40 N MONOCYTE % (test code = MO%) 10.1 % 1-10 H EOSINOPHIL % (test code = EO%) 0.7 % 0.0-5.0 N BASOPHIL % (test code = BA%) 0.5 % 0.0-1.0 N NUCLEATED RBC % (test code = NRBC%) 0.0 % 0.0-0.9 N NEUTROPHIL # (test code = NT#) 6.4 x10 3/uL 1.6-7.2 N LYMPHOCYTE # (test code = LY#) 2.27 x10 3/uL 1.1-2.7 N MONOCYTE # (test code = MO#) 1.0 x10 3/uL 0.3-0.8 H EOSINOPHIL # (test code = EO#) 0.1 x10 3/uL 0.0-0.5 N IMMATURE GRANULOCYTE % (test code = IG%) 0.9 % 0.0-2.0 N BASOPHIL # (test code = BA#) 0.1 x10 3/uL 0.0-0.1 N UR HCG [id number] 10:03:00* Test Item Value Reference Range Interpretation Comme nts UR HCG QUAL (test code = HCGQLU) NEGATIVE NEGATIVE rapid flu (A+B)2020-09-10 13:22:00* Test Item Value Reference Range Interpretation Comme nts FLU A (test code = FLU A) negative FLU B (test code = FLU B) negative [facility], [id number] 13:22:00 * Test Item Value Reference Range Interpretation Comme nts Strep (test code = Strep) negative [facility] [id number] 18:19:00* Test Item Value Reference Range Interpretation Comme nts POCT PREG (test code = 1605) Negative On board controls acceptable with C Line (test code = 3574) Yes POCT PREG LOT # (test code = 3575) POCT PREG TEST DATE ( test code = 3576) [facility] [id number] 18:19:00* Test Item Value Reference Range Interpretation Comme nts POCT PREG (test code = 1605) Negative On board controls acceptable with C Line (test code = 3574) Yes POCT PREG LOT # (test code = 3575) POCT PREG TEST DATE ( test code = 3576) [facility]
--- NOTE | 2024-04-28 16:50 | ER ---
Nurse's Notes [facility] Name: Fiona Sultana Age: 23 yrs Sex: Female : 2000 Arrival Date: 04/28/2024 Time: 14:48 Bed IW1 Private MD: Diagnosis: Presentation: 04/28 15:01 Chief complaint: Patient states: N/V x4 DAYS, PREVIOUSLY SEEN AT [place] AND WITH bp "KIDNEY INFECTION", NO IMPROVEMENT WITH PRESCRIBED ABX. Coronavirus screen: At this time, the client does not indicate any symptoms associated with coronavirus-19. Ebola Screen: No symptoms or risks identified at this time. Initial Sepsis Screen: Does the patient meet any 2 criteria? HR > 90 bpm. No. Patient's initial sepsis screen is negative. Does the patient have a suspected source of infection? No. Patient's initial sepsis screen is negative. Risk Assessment: Do you want to hurt yourself or someone else? Patient reports no desire to harm self or others. Onset of symptoms is unknown. 15:01 Method Of Arrival: Wheelchair bp 15:01 Acuity: [place] 3 bp Triage Assessment: 15:02 General: Appears in no apparent distress. uncomfortable, ill, Behavior is cooperative, bp appropriate for age, anxious. Pain: Complains of pain in back. EENT: No deficits noted. Neuro: No deficits noted. Cardiovascular: Rhythm is sinus tachycardia. Respiratory: No deficits noted. GI: Reports nausea, vomiting. : Reports pain in lower back. Derm: No deficits noted. Musculoskeletal: No deficits noted. Historical: - Allergies: 15:02 No Known Allergies; bp - Home Meds: 15:02 None [Active]; bp - PMHx: 15:02 None; bp - Immunization history:: Adult Immunizations up to date. - Infectious Disease History:: Denies. - Social history:: Smoking status: Patient denies any tobacco usage or history of. Assessment: 16:48 Reassessment: PT ELOPED FROM TRIAGE, INFORMED REGISTRATION. bp Vital Signs: 15:01 BP 109 / 88; Pulse 116; Resp 18; Temp 99.5; Pulse Ox 100% ; bp ED Course: 14:53 Patient arrived in ED. sj2 14:57 Josesito Alcantar PA is PHCP. cp 14:57 Josesito Hull MD is Attending Physician. cp 15:02 Triage completed. bp 15:02 Arm band placed on. bp 16:01 Radiology exam delayed due to test not completed at this time. sm9 16:42 Josesito Hull MD is Attending Physician. gali Administered Medications: No medications were administered Outcome: 16:48 Eloped from waiting room, after seeing physician Time discovered patient gone: April bp 2024 at 16:15 16:48 Condition: stable 16:50 Patient left the ED. bp Signatures: Josesito Hull MD MD cha Page, Corey, PA PA Thanh Tripathi, RN RN bp Maddie Rodríguez sm9 Katelynn Wiseman 2
[2024-04-28 17:22] VITALS: BP 109/88; TEMP 99.5; O2SAT 100
== END 2024-04-28 16:50 | disposition left against medical advice (07) ==
LOC: ER 14:48
DX: R11.2 Nausea with vomiting, unspecified (principal); Z53.21 Procedure and treatment not carried out due to patient leaving prior to being seen by health care provider
CPT/HCPCS: 99281

== ENCOUNTER 2024-12-29 04:06 | Emergency (ER) | payer SELFPAY ==
--- OUTSIDE RECORDS SUMMARY | 2024-12-29 04:11 | XMS REPORT | Continuity of Care Document ---
Author Name Unknown Address [address] [facility] [place] [address] [facility] Address [address] [facility] [facility] [place] [address] Care Team Providers Care Vegetable Grader Name Role Phone JULIANNA MOHAN Primary Care Physician Unav ailable Miryam Palomino CNM Attending Clinician [phone] MIRYAM PALOMINO Attending Clinician Unavaila ble Julianna Reno Attending Clinician + Thanh Celis Attending Clinician Unavailable Lowell_Panfilo Attending Clinician Unavailable Yahaira Wang Attending Clinician [phone] YAHAIRA STILES Attending Clinician Unavailabl e Doctor Unassigned, [place] Attending Clinician U laura HERNANDEZ Attending Clinician Unavailable Victoria Cooley Attending Clinician [phone] JULIANNA MOHAN Attending Clinician Unavail able PHU Attending Clinician Unavailable Sue Garland MA [facility] STAFF OCCUPATIONAL THERAPIST Admitting Clinician U laura KNOW, DOES_NOT Admitting Clinician Unavailable L_Penken Admitting Clinician Unavailable MARY Admitting Clinician Unavailable PHU Admitting Clinician Unavailable Payers Payer Name Policy Type Policy Number Effective Date Expirati on Date Source [id number] 00:[facility]00 Problems Condition Name Condition Details Condition Category Status Onset Date Resolution Date Last Treatment Date Treating Clinician Comments Source Gastroesop hageal reflux disease Gastroesop hageal Reflux Disease Problem Active 7[facility]10 [facility]:00: [facility] Vomiting Vomiting Problem Active 1-16 00:00: 00 [facility] Atypical squamous cells of undetermin ed significan ce (ASCUS) on Papanicola ou smear of cervix Atypical squamous cells of undetermin ed significan ce (ASCUS) on Papanicola ou smear of cervix Disease Active 5-15 00:00: 00 Overview: Formattin g of this note might be different from the original. 4 ASCUS, repeat 1 year [facility] Engages in vaping Engages in vaping Disease Active 5-03 00:00: 00 [facility] Fracture of lumbar spine Fracture of Lumbar Spine Problem Active 1-21 00:00: 00 [facility] Mixed anxiety and depressive disorder Mixed Anxiety and Depressive Disorder Problem Active 6-02 00:00: 00 [facility] Acute pharyngiti s Acute Pharyngiti s Problem Active 6-02 00:00: 00 [facility] Nausea Nausea Problem Active 6-02 00:00: 00 [facility] Nexplanon insertion Nexplanon insertion Disease Active 3-15 00:00: 00 [facility] Nexplanon in place Nexplanon in place Disease Active 3-15 00:00: 00 [facility] Leukocytos is Leukocytos is Problem Active 10-03 00:00: 00 [facility] Abdominal pain Abdominal Pain Problem Active 6-25 00:00: 00 [facility] Cyst of left ovary Cyst of Left Ovary Problem Active 6- 00:00: [facility] Seasonal allergy Seasonal Allergy Problem Active 3-17 00:00: 00 Magali Hernandez [facility] Pain pelvic Pain pelvic Disease Active 5 00:00: 00 [facility] Contracept gabino management Contracept gabino management Disease Active 06-23 00:00: 00 [facility] Nexplanon removal Nexplanon removal Disease Active 06-23 00:00: 00 Overview: Formattin g of this note might be different from the original. Inserted 06/2017 [facility] Allergies, Adverse Reactions, Alerts Allergy Name Allergy Type Status Severity Reaction(s) Onset Date Inactive Date Treating Clinician Comments Source No Known Allergie s DA Active U 12-28 00:00: 00 [facility] are [facility] No Known Allergie s DA Active U 07-09 00:00: 00 [facility] NO KNOWN ALLERGIE S Drug Class Active [facility] Social History Social Habit Start Date Stop Date Quantity Comments Source [facility] of tobacco use Cigarette Smoker [facility] Exposure to SARS-CoV-2 (event) Not sure [facility] Alcoholic beverage intake 2023-08-24 00:00:00 2023-08-24 00:00:00 1.71 /d [facility] Alcohol intake 2023-08-12 00:00:00 2023-08-12 00:00:00 1.71 /d [facility] History of Social function 2023-08-11 00:00:00 2023-08-11 00:00:00 [facility] Tobacco use and exposure 2023-08-11 00:00:00 2023-08-11 00:00:00 User of smokeless tobacco [facility] Sex assigned at 2000 00:00:00 2000 00:00:00 [facility] Smoking Status Start Date Stop Date Source Smokes tobacco daily 2023-08-11 00:00:00 [facility] Never smoked tobacco [facility] Medications Ordered Medication Name Filled Medication Name Start Date Stop Date Current Medication? Ordering Clinician Indication Dosage Frequency Signature (SIG) Comments Components Source fluoxetine HCl (PROZAC ORAL) 2021-0 9-21 13:39: 07 Yes Take by mouth. [facility] fluoxetine HCl (PROZAC ORAL) 4-06 13:58: 06 08-11 00:00 :00 No Take by mouth. [facility] dicloxacill in 500 mg capsule 3-18 00:00: 00 07-04 04:59 :00 No [id number] 500mg Take 1 capsule by mouth 4 (four) times daily for 7 days. [facility] etonogestre L (NEXPLANON) implant 68 mg 3-15 20:00: 00 06-23 18:53 :00 No [id number] 68mg Univer s [facility] [place] [place] No known medications No Un benito [facility] [place] No known medications No Un benito [facility] [place] No known medications No Un benito [facility] [place] No known medications No Un ebnito [facility] [place] No known medications No Un benito [facility] [place] No known medications No Un benito [facility] [place] famotidine 20 mg tablet Take 1 tablet twice a day by oral route for 90 days. famotidine 20 mg tablet Take 1 tablet twice a day by oral route for 90 days. No 1 BID famotidine 20 mg tablet Take 1 tablet twice a day by oral route for 90 days. Magali Hernandez [facility] Immunizations Ordered Immunization Name Filled Immunization Name Date Status Comments Source TDAP 2023-08-24 00:00:00 Completed [facility] HPV9 2023-08-24 00:00:00 Completed [facility] Influenza Virus Vaccine Quad .5 mL IM 6+ MO (FLUZONE/FLULAVAL/FL UARIX) 2023-08-24 00:00:00 Completed [facility] SARS-COV-2 COVID-19 PFIZER VACCINE 2023-08-24 00:00:00 Completed [facility] TDAP 2023-08-11 12:30:00 Completed [facility] HPV9 2023-08-11 12:30:00 Completed [facility] Influenza Virus Vaccine Quad .5 mL IM 6+ MO (FLUZONE/FLULAVAL/FL UARIX) 2023-08-11 12:30:00 Completed [facility] SARS-COV-2 COVID-19 PFIZER VACCINE 2023-08-11 12:30:00 Completed [facility] TDAP 2023-06-30 00:00:00 Completed [facility] HPV9 2023-06-30 00:00:00 Completed [facility] Influenza Virus Vaccine Quad .5 mL IM 6+ MO (FLUZONE/FLULAVAL/FL UARIX) 2023-06-30 00:00:00 Completed [facility] SARS-COV-2 COVID-19 PFIZER VACCINE 2023-06-30 00:00:00 Completed [facility] SARS-COV-2 COVID-19 PFIZER VACCINE 2020-11-24 00:00:00 Completed [facility] SARS-COV-2 COVID-19 PFIZER VACCINE 2020-11-03 00:00:00 Completed [facility] Influenza Virus Vaccine Quad .5 mL IM 6+ MO 2019-12-27 00:00:00 Completed [facility] Influenza Virus Vaccine Quad .5 mL IM 6+ MO 2019-12-27 00:00:00 Completed [facility] Influenza Virus Vaccine Quad .5 mL IM 6+ MO 2019-12-27 00:00:00 Completed [facility] Influenza Virus Vaccine Quad .5 mL IM 6+ MO 2019-12-27 00:00:00 Completed [facility] Influenza Virus Vaccine Quad .5 mL IM 6+ MO 2019-12-27 00:00:00 Completed [facility] Influenza Virus Vaccine Quad .5 mL IM 6+ MO 2019-12-27 00:00:00 Completed [facility] Influenza Virus Vaccine Quad .5 mL IM 6+ MO 2019-12-27 00:00:00 Completed [facility] Influenza Virus Vaccine Quad .5 mL IM 6+ MO 2019-12-27 00:00:00 Completed [facility] Influenza Virus Vaccine Quad .5 mL IM 6+ MO 2019-12-27 00:00:00 Completed [facility] meningococcal MCV4P meningococcal MCV4P 16:16:00 Completed [facility] HPV9 2017-12-29 00:00:00 Completed [facility] HPV9 2017-12-29 00:00:00 Completed [facility] HPV9 2017-12-29 00:00:00 Completed [facility] HPV9 2017-12-29 00:00:00 Completed [facility] HPV9 2017-12-29 00:00:00 Completed [facility] HPV9 2017-12-29 00:00:00 Completed [facility] HPV9 2017-12-29 00:00:00 Completed [facility] HPV9 2017-12-29 00:00:00 Completed [facility] HPV9 2017-12-29 00:00:00 Completed [facility] HPV9 2017-12-29 00:00:00 Completed [facility] HPV9 2017-08-26 00:00:00 Completed [facility] HPV9 2017-08-26 00:00:00 Completed [facility] HPV9 2017-08-26 00:00:00 Completed [facility] HPV9 2017-08-26 00:00:00 Completed [facility] HPV9 2017-08-26 00:00:00 Completed [facility] HPV9 2017-08-26 00:00:00 Completed [facility] HPV9 2017-08-26 00:00:00 Completed [facility] HPV9 2017-08-26 00:00:00 Completed [facility] HPV9 2017-08-26 00:00:00 Completed [facility] HPV9 2017-08-26 00:00:00 Completed [facility] HPV9 2017-06-23 00:00:00 Completed [facility] HPV9 2017-06-23 00:00:00 Completed [facility] HPV9 2017-06-23 00:00:00 Completed [facility] HPV9 2017-06-23 00:00:00 Completed [facility] HPV9 2017-06-23 00:00:00 Completed [facility] HPV9 2017-06-23 00:00:00 Completed [facility] HPV9 2017-06-23 00:00:00 Completed [facility] HPV9 2017-06-23 00:00:00 Completed [facility] HPV9 2017-06-23 00:00:00 Completed [facility] HPV9 2017-06-23 00:00:00 Completed [facility] TDAP 2013-04-11 00:00:00 Completed [facility] TDAP 2013-04-11 00:00:00 Completed [facility] TDAP 2013-04-11 00:00:00 Completed [facility] TDAP 2013-04-11 00:00:00 Completed [facility] TDAP 2013-04-11 00:00:00 Completed [facility] TDAP 2013-04-11 00:00:00 Completed [facility] TDAP 2013-04-11 00:00:00 Completed [facility] TDAP 2013-04-11 00:00:00 Completed [facility] TDAP 2013-04-11 00:00:00 Completed [facility] TDAP 2013-04-11 00:00:00 Completed [facility] Vital Signs Vital Name Observation Time Observation Value Comments S ource BP Systolic 2024-10-18 00:00:00 112 mm[Hg] [facility] BP Diastolic 2024-10-18 00:00:00 70 mm[Hg] [facility] BMI (Body Mass Index) 2024-10-18 00:00:00 23.5 kg/m2 [facility] Body Weight 2024-10-18 00:00:00 1987.2 [oz_av] [facility] Height 2024-10-18 00:00:00 61 [in_i] [facility] Height 2024-05-04 00:00:00 61 [in_i] [facility] Body Weight 2024-05-04 00:00:00 2025.6 [oz_av] [facility] BP Diastolic 2024-05-04 00:00:00 57 mm[Hg] [facility] BP Systolic 2024-05-04 00:00:00 112 mm[Hg] [facility] BMI (Body Mass Index) 2024-05-04 00:00:00 23.9 kg/m2 [facility] BP Systolic 2024-04-26 00:00:00 115 mm[Hg] [facility] BP Diastolic 2024-04-26 00:00:00 65 mm[Hg] [facility] Body Weight 2024-04-26 00:00:00 2048 [oz_av] [facility] Systolic blood pressure 2023-08-11 17:59:00 96 mm[Hg] [facility] Diastolic blood pressure 2023-08-11 17:59:00 65 mm[Hg] [facility] Heart rate 2023-08-11 17:59:00 78 /min [facility] Body temperature 2023-08-11 17:59:00 36.39 [facility] Respiratory rate 2023-08-11 17:59:00 16 /min [facility] Body height 2023-08-11 17:59:00 154.9 cm [facility] Body weight 2023-08-11 17:59:00 58.06 kg [facility] BMI 2023-08-11 17:59:00 24.19 kg/m2 [facility] BP Diastolic 2022-06-02 00:00:00 75 mm[Hg] [facility] Height 2022-06-02 00:00:00 61 [in_i] [facility] BMI (Body Mass Index) 2022-06-02 00:00:00 26.3 kg/m2 [facility] BP Systolic 2022-06-02 00:00:00 117 mm[Hg] [facility] Body Weight 2022-06-02 00:00:00 2227.2 [oz_av] [facility] BP Systolic 2022-02-23 00:00:00 121 mm[Hg] [facility] Body Weight 2022-02-23 00:00:00 2214.4 [oz_av] [facility] BP Diastolic 2022-02-23 00:00:00 76 mm[Hg] [facility] Height 2022-02-23 00:00:00 61 [in_i] [facility] Systolic blood pressure 2020-12-30 18:37:00 97 mm[Hg] [facility] Diastolic blood pressure 2020-12-30 18:37:00 64 mm[Hg] [facility] Heart rate 2020-12-30 18:37:00 68 /min Unive [facility] Body temperature 2020-12-30 18:37:00 36.94 [facility]ail [facility] Respiratory rate 2020-12-30 18:37:00 18 /min [facility] Body height 2020-12-30 18:37:00 154.9 cm [facility] Body weight 2020-12-30 18:37:00 52.98 kg [facility] BMI 2020-12-30 18:37:00 22.07 kg/m2 [facility] Body mass index (BMI) [Percentile] Per age and sex 2020-12-30 18:37:00 56.22 % [facility] BP Diastolic 2020-10-07 00:00:00 60 mm[Hg] [facility] Height 2020-10-07 00:00:00 61 [in_i] [facility] BP Systolic 2020-10-07 00:00:00 100 mm[Hg] [facility] BP Diastolic 2020-09-10 00:00:00 58 mm[Hg] [facility] Height 2020-09-10 00:00:00 61 [in_i] [facility] BMI (Body Mass Index) 2020-09-10 00:00:00 21.5 kg/m2 [facility] BP Systolic 2020-09-10 00:00:00 108 mm[Hg] [facility] Body Weight 2020-09-10 00:00:00 1817.6 [oz_av] [facility] Systolic blood pressure 2020-07-15 18:06:00 94 mm[Hg] [facility] Diastolic blood pressure 2020-07-15 18:06:00 62 mm[Hg] [facility] Heart rate 2020-07-15 18:06:00 62 /min [facility] Body temperature 2020-07-15 18:06:00 37.06 Gail [facility] Respiratory rate 2020-07-15 18:06:00 16 /min [facility] Body height 2020-07-15 18:06:00 154.9 cm [facility] Body weight 2020-07-15 18:06:00 48.138 kg [facility] BMI 2020-07-15 18:06:00 20.05 kg/m2 [facility] Systolic blood pressure 2020-06-30 20:03:00 112 mm[Hg] [place] [facility] Diastolic blood pressure 2020-06-30 20:03:00 69 mm[Hg] [facility] Heart rate 2020-06-30 20:03:00 90 /min Unive [facility] Body temperature 2020-06-30 20:03:00 36.83 Gail [facility] Respiratory rate 2020-06-30 20:03:00 16 /min [facility] Body height 2020-06-30 20:03:00 154.9 cm [facility] Body weight 2020-06-30 20:03:00 47.809 kg [facility] BMI 2020-06-30 20:03:00 19.92 kg/m2 [facility] Systolic blood pressure 2020-06-26 21:14:00 106 mm[Hg] [facility] Diastolic blood pressure 2020-06-26 21:14:00 71 mm[Hg] [facility] Heart rate 2020-06-26 21:14:00 64 /min [facility] Body temperature 2020-06-26 21:14:00 36.89 [facility]ail [facility] Respiratory rate 2020-06-26 21:14:00 16 /min [facility] Body height 2020-06-26 21:14:00 154.9 cm [facility] Body weight 2020-06-26 21:14:00 46.522 kg [facility] BMI 2020-06-26 21:14:00 19.38 kg/m2 [facility] Systolic blood pressure 2020-06-23 18:16:00 113 mm[Hg] [facility] Diastolic blood pressure 2020-06-23 18:16:00 71 mm[Hg] [facility] Heart rate 2020-06-23 18:16:00 74 /min Un[facility] Body temperature 2020-06-23 18:16:00 36.89 Gail [facility] Respiratory rate 2020-06-23 18:16:00 16 /min [facility] Body height 2020-06-23 18:16:00 154.9 cm [facility] Body weight 2020-06-23 18:16:00 46.38 kg [facility] BMI 2020-06-23 18:16:00 19.32 kg/m2 [facility] BP Diastolic 2020-05-05 00:00:00 67 mm[Hg] [facility] Height 2020-05-05 00:00:00 61 [in_i] [facility] BMI (Body Mass Index) 2020-05-05 00:00:00 19.7 kg/m2 [facility] BP Systolic 2020-05-05 00:00:00 105 mm[Hg] [facility] Body Weight 2020-05-05 00:00:00 1664 [oz_av] [facility] Systolic blood pressure 2019-12-27 18:21:00 117 mm[Hg] [place] [facility] Diastolic blood pressure 2019-12-27 18:21:00 75 mm[Hg] [place] [facility] Heart rate 2019-12-27 18:21:00 92 /min [facility] Body temperature 2019-12-27 18:21:00 36.89 [facility] Respiratory rate 2019-12-27 18:21:00 16 /min [facility] Body height 2019-12-27 18:21:00 154.9 cm [facility] Body weight 2019-12-27 18:21:00 48.592 kg [facility] BMI 2019-12-27 18:21:00 20.24 kg/m2 [facility] Procedures Procedure Date / Time Performed Performing Clinician Source US, abdomen, complete 2024-10-18 00:00:00 [facility] POCT TEST 2023-08-11 19:36:00 Marylou Palomino [facility] PAP SMEAR-LIQUID BASED-CP 2023-08-11 19:35:00 Miryam Palomino [facility] CBC WITH DIFF 2023-08-11 18:50:00 Miryam Palomino [facility] HIV 1/2 AG-AB WITH REFLEX 2023-08-11 18:50:00 Miryam Palomino [facility] ASSIGNMENT OF BENEFITS 2020-12-30 18:19:07 Docto r Unassigned, [place] [facility] XR, chest, 2 view 2020-10-07 00:00:00 [facility] POCT TEST 2020-06-23 18:19:00 Edgar Mohan [facility] DISCLOSURE AND CONSENT, MEDICAL AND SURGICAL PROCEDURES 2020-06-23 05:01:00 Doctor Unassigned, [place] [facility] FLU VACC ([id number]), 6+ MONTHS, IM, QUAD 2019-12-27 18:29:17 Yahaira Stiles [facility] ASSIGNMENT OF BENEFITS 2019-12-27 17:57:44 Docto r Unassigned, [place] [facility] Debridement 2004-04-11 00:00:00 [facility] Encounters Start Date/Time End Date/Time Encounter Type Admission Type Attending Clinicians Care Facility Care Department Encounter ID Source 2024-10-18 00:00:00 2024-10-18 00:00:00 Nannette Whittaker APRN, MSN, CAREER DEVELOPMENT COORDINATOR/TEACHER-BC: [address] [place] [address] , Ph. [facility] [id number] [place] [address] 2024-05-04 00:00:00 2024-05-04 00:00:00 Nannette Whittaker APRN, MSN, CAREER DEVELOPMENT COORDINATOR/TEACHER-BC: [address] [facility], [address], [place] [address] , Ph. [facility] [address] [facility] 2024-04-26 00:00:00 2024-04-26 00:00:00 Nannette Whittaker APRN, MSN, [facility]-: [address] [place] [address], [address], [place] [address] , Ph. [facility] [address] [facility] 2023-08-24 00:00:00 2023-08-24 12:52:39 Telephone Miryam Palomino [facility] ATTENDANT [facility] & CHILD [facility] [id number] [facility] 2023-08-17 08:30:00 2023-08-17 08:30:00 Outpatient MIRYAM LOPEZ [facility] [id number] [facility] 2023-08-11 12:30:00 2023-08-11 13:54:09 Outpatient MIRYAM LOPEZ [facility] [id number] [facility] 2023-08-11 12:30:00 2023-08-11 13:54:09 Office Visit Miryam Palomino [facility] ATTENDANT [facility] CHILD [facility] ..[id number] [facility] 2023-07-29 09:00:00 2023-07-29 09:00:00 Outpatient MIRYAM LOPEZ [facility] [id number] [facility] 2023-07-29 09:00:00 2023-07-29 09:00:00 Outpatient MIRYAM LOPEZ [facility] [id number] [facility] 2023-06-30 00:00:00 2023-06-30 00:00:00 Telephone Marques Julianna Huang [facility] ATTENDANT [facility] & CHILD [facility] .[id number] [facility] 2022-12-28 06:04:00 2022-12-28 06:04:00 Outpatient EL Selbst [facility] [id number] [facility] 2022-07-13 05:03:00 2022-07-13 05:03:00 Outpatient LAINEY Selbst Thanh [facility] [id number] [facility] 2022-06-02 00:00:00 2022-06-02 00:00:00 Elsa Palacios APRN-CAREER DEVELOPMENT COORDINATOR/TEACHER-B C: [address] [place] [address], [address] [place] [id number] , Ph. [facility] [id number] [facility] 2022-02-23 00:00:00 2022-02-23 00:00:00 Nannette Whittaker APRN, MSN, CAREER DEVELOPMENT COORDINATOR/TEACHER-BC: [address] [place] [address], [address] [place] [address] , Ph. [facility] [id number] [facility] 2020-12-30 13:22:44 2020-12-30 13:59:34 Office Visit Yahaira Stiles [facility] ATTENDANT [facility] .[id number] [facility] 2020-12-30 13:15:00 2020-12-30 13:15:00 Outpatient YAAHIRA WALKER [facility] [id number] [facility] 2020-12-30 00:00:00 2020-12-30 00:00:00 Orders Only Doctor Unassigned, [place] [facility] [id number] [facility] 2020-12-30 00:00:00 2020-12-30 00:00:00 Orders Only Doctor Unassigned, [place] [facility] [id number] [facility] 2020-10-07 00:00:00 2020-10-07 00:00:00 Outpatient Victoria Cooley [facility] [id number] 2020-10-07 00:00:00 2020-10-07 00:00:00 EMILIANO Brice-C: [address] [place] [address], [address] [address] , Ph. [facility] [id number] [facility] 2020-09-10 00:00:00 2020-09-10 00:00:00 Outpatient Victoria Cooley [facility] [id number] 2020-09-10 00:00:00 2020-09-10 00:00:00 EMILIANO Brice-C: [address] [place] [address], [address] [place] [address] , Ph. [facility] [id number] [facility] 2020-07-15 12:57:43 2020-07-15 13:27:48 Office Visit Julianna Mohan [facility] ATTENDANT [facility] [id number] 350.1.13.10 4.2.7.2.686 [id number] [facility] 2020-07-15 12:45:00 2020-07-15 12:45:00 Outpatient R MARQUESBRIDGETTEJULIANNA [facility] [id number] [facility] 2020-07-07 10:00:00 2020-07-07 10:00:00 Outpatient R JULIANNA MOHAN [facility] [id number] [facility] 2020-06-30 14:56:57 2020-06-30 15:11:57 Office Visit Julianna Moh[facility]END[facility] ..840.114 350.1.13.10 4.2.7.2.686 [id number] [facility] 2020-06-30 14:45:00 2020-06-30 14:45:00 Outpatient R OLYJESSICAKASHIFJULIANNA [facility] [id number] [facility] 2020-06-26 16:06:23 2020-06-26 16:28:07 Office Visit Julianna Mohan [facility] ATTENDANT [facility] ..840.114 350.1.13.10 4.2.7.2.686 [id number] 107 [id number] [facility] 2020-06-26 16:00:00 2020-06-26 16:00:00 Outpatient R OLYJESSICAKASHIFBRIDGETTEJULIANNA [facility] [id number] [facility] 2020-06-26 00:00:00 2020-06-26 00:00:00 Telephone Julianna Mohan [facility] ATTEND[facility] ..840.114 350.1.13.10 4.2.7.2.686 [id number] [facility] 2020-06-23 12:57:04 2020-06-23 14:04:04 Office Visit Julianna Mohan Sal [facility] ATTEND[facility] 1..840.114 350.1.13.10 4.2.7.2.686 [id number] [facility] 2020-06-23 13:00:00 2020-06-23 13:00:00 Outpatient R MARQUES JULIANNA [facility] [id number] [facility] 2020-06-23 00:00:00 2020-06-23 00:00:00 Orders Only Doctor Unassigned, [place] [facility] 1..840.114 350.1.13.10 4.2.7.2.686 [id number] [facility] 2020-05-05 00:00:00 2020-05-05 00:00:00 Outpatient Victoria Cooley [facility] [id number] 2020-05-05 00:00:00 2020-05-05 00:00:00 Victoria parker, [facility]-C: [address] [place] [address], [address] [address] , Ph. [facility] [id number] [facility] 2019-12-27 13:05:25 2019-12-27 13:34:28 Office Visit Yahaira Stiles [facility] ATTENDANT [facility] 1..840.114 350.1.13.10 4.2.7.2.686 [id number] 107 [id number] [facility] 2019-12-27 12:45:00 2019-12-27 12:45:00 Outpatient R YAHAIRA STILES [facility] [id number] [facility] 2019-12-27 00:00:00 2019-12-27 00:00:00 Orders Only Doctor Unassigned, [place] [facility] 1.2.840.114 350.1.13.10 4.2.7.2.686 [id number] [facility] Results Test Description Test Time Test Comments Results Result [facility] [id number] 10:28:48* Test Item Value Reference Range Interpretation Comme nts HIV Semi-quantitative (test code = 67948-6) 0.08 Negative JT (test code = JT) Non-reactive for HIV-1 antigen and HIV-1/HIV-2 antibodies. ?No laboratory evidence of HIV infection. ?Repeat in 2-4 weeks if acute [facility] infection is suspected[facility] [id number] 10:28:48* Test Item Value Reference Range Interpretation Comme [facility] HIV Semi-quantitative (test code = 33678-4) 0.08 Negative JT (test code = JT) Non-reactive for HIV-1 antigen and HIV-1/HIV-2 antibodies. ?No laboratory evidence of HIV infection. ?Repeat in 2-4 weeks if acute HIV infection is suspected. [facility] WITH [id number] 10:28:48* Test Item Value Reference Range Interpretation Comme nts HIV Semi-quantitative (test code = 42965-4) 0.08 Negative JT (test code = JT) Non-reactive for HIV-1 antigen and HIV-1/HIV-2 antibodies. ?No laboratory evidence of HIV infection. ?Repeat in 2-4 weeks if acute HIV infection is suspected. [facility] [id number] 04:38:58* Test Item Value Reference Range Interpretation [...] 32.4 g/dL 31.6-35.1 RDW-SD (test code = 23676-1) 45.6 fL 39.0-49.9 RDW-CV (test code = 788-0) 12.9 % 12.0-15.5 PLT (test code = 777-3) 249 166-358 MPV (test code = 44712-9) 10.4 fL 9.5-12.9 NRBC/100 WBC (test code = 2094469409) 0.0 0.0-10.0 NRBC x10^3 (test code = 9382256042) See_Comment [Automated messa ge] The system which generated this result transmitted reference range: 10*3/?L. The reference range was not used to interpret this result as normal/abnormal. GRAN MAT (NEUT) % (test code = 770-8) 58.7 % IMM GRAN % (test code = 8307291952) 1.90 % LYMPH % (test code = 736-9) 27.5 % MONO % (test code = 5905-5) 9.9 % EOS % (test code = 713-8) 1.1 % BASO % (test code = 706-2) 0.9 % GRAN MAT x10^3(ANC) (test code = 6055792041) 4.62 10*3/uL 1.88-7.09 IMM GRAN x10^3 (test code = 4194252107) 0.15 10*3/uL 0.00-0.06 H LYMPH x10^3 (test code = 731-0) 2.17 10*3/uL 1.32-3.29 MONO x10^3 (test code = 742-7) 0.78 10*3/uL 0.33-0.92 EOS x10^3 (test code = 711-2) 0.09 10*3/uL 0.03-0.39 BASO x10^3 (test code = 704-7) 0.07 10*3/uL 0.01-0.07 Lab Interpretation (test code = 47499-6) Abnormal [facility] WITH [id number] 04:38:58* Test Item Value Reference Range Interpretation [...] 32.4 g/dL 31.6-35.1 RDW-SD (test code = 97404-8) 45.6 fL 39.0-49.9 RDW-CV (test code = 788-0) 12.9 % 12.0-15.5 PLT (test code = 777-3) 249 166-358 MPV (test code = 21485-2) 10.4 fL 9.5-12.9 NRBC/100 WBC (test code = 9110121389) 0.0 0.0-10.0 NRBC x10^3 (test code = 3180218987) See_Comment [Automated messa ge] The system which generated this result transmitted reference range: 10*3/?L. The reference range was not used to interpret this result as normal/abnormal. GRAN MAT (NEUT) % (test code = 770-8) 58.7 % IMM GRAN % (test code = 0390629479) 1.90 % LYMPH % (test code = 736-9) 27.5 % MONO % (test code = 5905-5) 9.9 % EOS % (test code = 713-8) 1.1 % BASO % (test code = 706-2) 0.9 % GRAN MAT x10^3(ANC) (test code = 3767848170) 4.62 10*3/uL 1.88-7.09 IMM GRAN x10^3 (test code = 2062855259) 0.15 10*3/uL 0.00-0.06 H LYMPH x10^3 (test code = 731-0) 2.17 10*3/uL 1.32-3.29 MONO x10^3 (test code = 742-7) 0.78 10*3/uL 0.33-0.92 EOS x10^3 (test code = 711-2) 0.09 10*3/uL 0.03-0.39 BASO x10^3 (test code = 704-7) 0.07 10*3/uL 0.01-0.07 Lab Interpretation (test code = 34091-5) Abnormal [facility] WITH [id number] 04:38:58* Test Item Value Reference Range Interpretation [...] 32.4 g/dL 31.6-35.1 RDW-SD (test code = 30520-6) 45.6 fL 39.0-49.9 RDW-CV (test code = 788-0) 12.9 % 12.0-15.5 PLT (test code = 777-3) 249 166-358 MPV (test code = 84893-3) 10.4 fL 9.5-12.9 NRBC/100 WBC (test code = 5403706738) 0.0 0.0-10.0 NRBC x10^3 (test code = 6322643609) See_Comment [Automated messa ge] The system which generated this result transmitted reference range: 10*3/?L. The reference range was not used to interpret this result as normal/abnormal. GRAN MAT (NEUT) % (test code = 770-8) 58.7 % IMM GRAN % (test code = 5048567225) 1.90 % LYMPH % (test code = 736-9) 27.5 % MONO % (test code = 5905-5) 9.9 % EOS % (test code = 713-8) 1.1 % BASO % (test code = 706-2) 0.9 % GRAN MAT x10^3(ANC) (test code = 6212118925) 4.62 10*3/uL 1.88-7.09 IMM GRAN x10^3 (test code = 6953431342) 0.15 10*3/uL 0.00-0.06 H LYMPH x10^3 (test code = 731-0) 2.17 10*3/uL 1.32-3.29 MONO x10^3 (test code = 742-7) 0.78 10*3/uL 0.33-0.92 EOS x10^3 (test code = 711-2) 0.09 10*3/uL 0.03-0.39 BASO x10^3 (test code = 704-7) 0.07 10*3/uL 0.01-0.07 Lab Interpretation (test code = 67265-9) Abnormal [facility] [id number] 19:36:00* Test Item Value Reference Range Interpretation Comme nts POCT PREG (test code = 1605) Negative On board controls acceptable with C Line (test code = 3574) Yes POCT PREG LOT # (test code = 3575) POCT PREG TEST DATE ( test code = 3576) [facility] [id number] 19:36:00* Test Item Value Reference Range Interpretation Comme nts POCT PREG (test code = 1605) Negative On board controls acceptable with C Line (test code = 3574) Yes POCT PREG LOT # (test code = 3575) POCT PREG TEST DATE ( test code = 3576) [facility] [id number] 19:36:00* Test Item Value Reference Range Interpretation Comme nts POCT PREG (test code = 1605) Negative On board controls acceptable with C Line (test code = 3574) Yes POCT PREG LOT # (test code = 3575) POCT PREG TEST DATE ( test code = 3576) [id number] 07:47:00* Test Item Value Reference Range Interpretation Comme nts SURGICAL SPECIMENS (test code = SURG) RUN DATE: 12/29/22 [facility] - LAB PAGE 1 RUN TIME: 746 Specimen Inquiry RUN USER: INTERFACE PATIENT: FIONA SULTANA LOC: G U #: [id number] AGE/SX: 22/F ROOM: RE12/28/22REG DR: Thanh Celis DPM : 01 BED: DIS: STATUS: JESSICA VALENCIA TLOC: SPEC #: [id number] RECD: 12/28/229 STATUS: ALEX ESPINOZA #: [id number] HERRERA: 12/28/22-[address]: Thanh Celis DPM ENTERED: 12/28/22 SP TYPE: SURG OTHR DR: DOES_NOT KNOW Sue Garland MA [facility] SLPORDERED: GROSS, PATH SPEC TISSUES: A. FANCY STITCHER - Left food hardware CLINICAL HISTORY Diagnosis/Clinical [...] serial number on one of the screws: [id number] 2.5. No tissue is submitted with this gross specimen. TR 12/28/2022 05:30 PM Signed SIGNATURE ON FILE [place] 12/29/22 0747 END OF REPORT HCG SERUM [id number] 10:01:00* Test Item Value Reference Range Interpretation Comme nts HCG SERUM QUAL (test code = HCGQL) NEGATIVE NEGATIVE This is a qu alitative screening test.The quantitative Bhcg may be helpful.Weakly positive results should be repeated in 48 hours. COMPREHENSIVE METABOLIC [id number] 10:01:00* Test Item Value Reference Range Interpretation [...] calculation forGFR is based on the CKD-EPI (2020) calculation. This formulais race indifferent and is [...] code = ICTINDEX) 2 Index/DL See_Comment [Automated Garenaa ge] The system which generated this result transmitted reference range: 1 NORMAL. The reference range was not used to interpret this result as normal/abnormal. INDEX LIPEMIA (test code = LIPINDEX) 0 Index/DL See_Comment [Automated messa ge] The system which generated this result transmitted reference range: 1 NORMAL. The reference range was not used to interpret this result as normal/abnormal. CBC W/AUTO [id number] 09:46:00* Test Item Value Reference Range Interpretation [...] 0.1 x10 3/uL 0.0-0.1 N UR HCG [id number] 10:03:00* Test Item Value Reference Range Interpretation Comme nts UR HCG QUAL (test code = HCGQLU) NEGATIVE NEGATIVE rapid flu (A+B)2020-09-10 13:22:00* Test Item Value Reference Range Interpretation Comme nts FLU A (test code = FLU A) negative FLU B (test code = FLU B) negative [facility] A, [id number] 13:22:00 * Test Item Value Reference Range Interpretation Comme nts Strep (test code = Strep) negative [facility]PO[facility] [id number] 18:19:00* Test Item Value Reference Range Interpretation Comme nts POCT PREG (test code = 1605) Negative On board controls acceptable with C Line (test code = 3574) Yes POCT PREG LOT # (test code = 3575) POCT PREG TEST DATE ( test code = 3576) [facility] [id number] 18:19:00* Test Item Value Reference Range Interpretation Comme nts POCT PREG (test code = 1605) Negative On board controls acceptable with C Line (test code = 3574) Yes POCT PREG LOT # (test code = 3575) POCT PREG TEST DATE ( test code = 3576) [facility] Notes Date/Time Note Provider Source 2023-08-24 12:52:18 Patient informed of results and recommendations, verbalized understanding. [facility] 2023-08-24 10:57:24 Please call patient and let her know ASCUS pap and need to repeat 1 year. [facility] 2023-08-11 12:30:00 Addended by: MIRYAM PALOMINO CNM on: 08/12/2023 08:19 AM Modules accepted: Orders [facility] 2023-06-30 14:54:34 Called patient to schedule, patient is aware of appt date and time and self pay dumont. Ritu Mathew [facility] 2023-06-30 13:09:39 Stated patient she feels like her implant is bent for the past two days. Stated she is able to move her arm but it is really sore. Patient is wanting to have it removed and replaced. Informed patient she is due for her WWE and will have to have it before her control can be removed and replaced. Patient stated she does not have insurance and will be self pay for visits. Informed patient pss will call for prices for both visits WWE and nexplanon removal and reinsertion. ER warnings given, verbalized understanding. T [facility] 2023-06-30 12:39:31 Foina Sultana is a 22 year old female Pt states the control in her arm is bent and is unable to move her arm. Pt requesting for it to be removed. Please call [phone] (home) Marcelina Saravia [facility]
[2024-12-29] MEDS ORDERED: MORPHINE 4 MG/ML SYR ONE (04:30)
[2024-12-29] MEDS ORDERED: ONDANSETRON 4 MG (ODT) TAB ONE (04:30)
--- NOTE | 2024-12-29 06:26 | RAD REPORT ---
EXAMINATION: Wrist Right 3 View CLINICAL HISTORY: PAIN COMPARISON: None FINDINGS: No acute fracture or dislocation. The radiocarpal and intercarpal joint spaces are preserved. No eros gabino changes noted. No chondrocalcinosis appreciated. IMPRESSION: No acute osseous abnormality of the wrist. RECOMMENDATIONS: Electronically signed by: Soren Cervantes MD 12/29/2024 06:21 AM CDT RP Due to temporary technical issues with the PACS/Feath[employer] reporting system, reports are being martinez d by the in-house radiologist without review as a courtesy to ensure prompt reporting. The interpreting radiologist is fully responsible for the content of the report. Transcribed Date/Time: 12/29/2024 6:26 AM
--- NOTE | 2024-12-29 06:26 | RAD REPORT ---
EXAMINATION: Forearm Right CLINICAL HISTORY: PAIN COMPARISON: None FINDINGS: No acute fracture, dislocation, or bony destructive process. No retained radiopaque foreign body. No focal soft tissue abnormality. IMPRESSION: No acute osseous abnormality. RECOMMENDATIONS: Electronically signed by: Soren Cervantes MD 12/29/2024 06:19 AM CDT RP Due to temporary technical issues with the PACS/[employer] reporting system, reports are being martinez d by the in-house radiologist without review as a courtesy to ensure prompt reporting. The interpreting radiologist is fully responsible for the content of the report. Transcribed Date/Time: 12/29/2024 6:25 AM
--- NOTE | 2024-12-29 06:27 | RAD REPORT ---
EXAMINATION: Hand Right 3 View CLINICAL HISTORY: DEFORMITY COMPARISON: None FINDINGS: No acute fracture, dislocation, or bony destructive process. The joint spaces are maintained. No ashley inal or central type erosions. No retained radiopaque foreign body. IMPRESSION: No acute osseous abnormality. RECOMMENDATIONS: Electronically signed by: Soren Cervantes MD 12/29/2024 06:20 AM CDT RP Due to temporary technical issues with the PACS/[employer] reporting system, reports are being martinez d by the in-house radiologist without review as a courtesy to ensure prompt reporting. The interpreting radiologist is fully responsible for the content of the report. Transcribed Date/Time: 12/29/2024 6:26 AM
--- NOTE | 2024-12-29 06:52 | EDPHYS ---
Physician Documentation [facility] Name: Fiona Sultana Age: 24 yrs Sex: Female : 2000 Arrival Date: 12/29/2024 Time: 04:06 Bed 8 Private MD: JEROD Physician Denis Veloz MEASURER MACHINE: 12/29 04:19 LMP 12/15/2024, unknown lg3 Historical: - Allergies: 04:19 No Known Allergies; lg3 - Home Meds: 04:19 None [Active]; lg3 - PMHx: 04:19 None; lg3 - PSHx: 04:19 foot; lg3 - Immunization history:: Adult Immunizations up to date. - Infectious Disease History:: Denies. - Social history:: Smoking status: Reported history of juuling and/or vaping. Patient uses alcohol, only on a social basis. Patient/guardian denies using street drugs. Vital Signs: 04:12 BP 124 / 78; Pulse 112; Resp 17 S; Temp 97.8(O); Pulse Ox 98% on R/A; Weight 56.7 kg lg3 (R); Height 5 ft. 1 in. (R); 05:51 BP 121 / 84; Pulse 103; Resp 16 S; Pulse Ox 99% on R/A; lg3 06:55 BP 117 / 77; Pulse 96; Resp 17 S; Pulse Ox 99% on R/A; lg3 04:12 Body Mass Index 23.62 (56.70 kg, 154.94 cm) lg3 MDM: 04:16 Medical Screening Exam initiated tt7 12/29 04:24 Order name: XRAY Forearm RIGHT tt7 12/29 04:24 Order name: XRAY Wrist RIGHT 3 view tt7 12/29 04:24 Order name: XRAY Hand RIGHT 3 View tt7 Administered Medications: 04:37 Drug: morphine Sub-Q 4 mg Sub-Q once {Note: administered IM per MD.} Route: Sub-Q; lg3 Site: left upper arm; 05:52 Follow up: Response: No adverse reaction lg3 04:37 Drug: Ondansetron Oral Disintegrating Tablet Oral Disintegrating Tablet 4 mg PO once lg3 Route: PO; 05:52 Follow up: Response: No adverse reaction lg3 Disposition Summary: 12/29/24 06:51 Discharge Ordered Notes: Location: Home tt7 Problem: new tt7 Symptoms: have improved tt7 Condition: Stable tt7 Diagnosis - Pain in right wrist tt7 - Pain in right hand tt7 - Pain in right forearm tt7 Followup: tt7 - With: Emergency Department - When: As needed - Reason: Followup: tt7 - With: Private Physician - When: 2 - 3 days - Reason: Recheck today's complaints, Re-evaluation by your physician Discharge Instructions: - Discharge Summary Sheet tt7 - Musculoskeletal Pain tt7 - How to Use Cold Therapy, Gbpy-po-Bldf tt7 - Wrist Pain, Adult, Tofc-ln-Jrik tt7 Forms: - Medication Reconciliation Form tt7 - Antibiotic Education tt7 - Prescription Opioid Use tt7 - Patient Portal Instructions tt7 - Leadership Thank You Letter tt7 Signatures: Dispatcher [employer] Orly Meraz RN RN lg3 Denis Veloz, DO DO tt7
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
[2024-12-29 07:29] VITALS: TEMP 97.8
[2024-12-29 07:30] VITALS: O2SAT 99
[2024-12-29 07:32] VITALS: BP 117/77
== END 2024-12-29 06:56 | disposition home or self-care (01) ==
LOC: ER 04:06
DX: M25.531 Pain in right wrist (principal); M79.641 Pain in right hand; M79.631 Pain in right forearm; F17.290 Nicotine dependence, other tobacco product, uncomplicated
CPT/HCPCS: 96372; 99284; Q0162